=== PATIENT | male | born 1955 | race African-American/Black ===

== ENCOUNTER 2021-07-16 00:51 | Emergency (ER) | payer OTHER, MEDICAID ==
[~2021-07-16] VITALS: Ht 180.3 cm; Wt 102.0 kg
[2021-07-16] MEDS ORDERED: ONDANSETRON HCL 4MG/2ML INJ IV STA (03:09)
[2021-07-16] MEDS ORDERED: SODIUM CHLORIDE 0.9% 1,000 ML IV ONE ×2 (03:15→09:45)
[2021-07-16 05:28] LABS: HEMATOCRIT. 50.9 % (42.0-52.0); HEMOGLOBIN. 16.5 g/dL (14.0-18.0); MEAN CORPUSCULAR VOLUME 89.6 fL (80.0-94.0); MEAN PLATELET VOLUME 8.6 fl (7.4-10.4); PLATELET 221 x1000/uL (130-400); RED BLOOD CELL COUNT 5.68 mill/uL (4.7-6.1); RED CELL DISTRIBUTION WIDTH 13.3 % (11.6-14.6)
[2021-07-16 05:30] VITALS: BP 132/92
[2021-07-16 05:36] LABS: CHLORIDE 100 mEq/L (98-107)
[2021-07-16 05:40] LABS: ETHANOL BLOOD < 10 mg/dL
[2021-07-16] MEDS ORDERED: SODIUM BICARBONATE 8.4% 1 MEQ/ML 50ML SYR IV ONE (06:15)
[2021-07-16] MEDS ORDERED: DEXTROSE 50% WATER 50ML SYRINGE IV ONE (06:15)
[2021-07-16] MEDS ORDERED: INSULIN REGULAR (HUMULIN R) 300UNITS/3ML VIAL IV ONE (06:15)
[2021-07-16] MEDS ORDERED: SODIUM POLYSTYRENE SULFONATE 15 G/60 ML BOT PO ONE (06:15)
[2021-07-16 08:25] LABS: PLATELET ESTIMATE NORMAL
[2021-07-16] MEDS ORDERED: CLONIDINE 0.1MG TABLET PO PRN (09:45)
[2021-07-16] MEDS ORDERED: GUAIFENESIN 200MG/10ML SUGAR FREE UDC PO PRN (09:45)
[2021-07-16] MEDS ORDERED: DOCUSATE SODIUM 100MG CAPSULE PO PRN (09:45)
[2021-07-16] MEDS ORDERED: ONDANSETRON HCL 4MG/2ML INJ IV PRN (09:45)
[2021-07-16] MEDS ORDERED: ACETAMINOPHEN 325MG TABLET PO PRN (09:45)
[2021-07-16 11:29] LABS: BASOPHILS % 0.2 % (0.0-2.0); EOSINOPHILS % 0.7 % (0.0-5.0); HEMATOCRIT. 50.3 % (42.0-52.0); HEMOGLOBIN. 16.4 g/dL (14.0-18.0); LYMPHOCYTES % 7.9 % (20.0-50.0); MEAN CORPUSCULAR VOLUME 88.9 fL (80.0-94.0); MEAN PLATELET VOLUME 8.3 fl (7.4-10.4); MONOCYTES % 10.3 % (2.0-8.0); NEUTROPHILS % 80.9 % (40.0-76.0); PLATELET 214 x1000/uL (130-400); RED BLOOD CELL COUNT 5.66 mill/uL (4.7-6.1); RED CELL DISTRIBUTION WIDTH 13.1 % (11.6-14.6)
[2021-07-16 11:42] LABS: PHOSPHORUS 3.5 mg/dL (2.5-4.9)
[2021-07-16 11:49] LABS: AMYLASE 96 IU/L (25-115)
[2021-07-16] MEDS ORDERED: SODIUM POLYSTYRENE SULFONATE 15 G/60 ML BOT PO NR (12:00)
[2021-07-16] MEDS ORDERED: PREDNISONE 10MG TABLET PO SCH (12:00)
[2021-07-16] MEDS ORDERED: TACROLIMUS 1MG CAPSULE PO SCH (12:00)
[2021-07-16] MEDS ORDERED: MYCOPHENOLATE MOFETIL 500MG TABLET PO SCH (21:00)
== END 2021-07-16 13:58 | disposition left against medical advice (07) ==
LOC: ER 00:51 → CANBEDREQ 22:44
DX: N17.9 Acute kidney failure, unspecified (principal); I12.9 Hypertensive chronic kidney disease with stage 1 through stage 4 chronic kidney disease, or unspecified chronic kidney disease; E87.1 Hypo-osmolality and hyponatremia; Z20.822 Contact with and (suspected) exposure to COVID-19; K85.90 Acute pancreatitis without necrosis or infection, unspecified; N18.30 Chronic kidney disease, stage 3 unspecified; E87.2 Acidosis; F14.129 Cocaine abuse with intoxication, unspecified; Z94.0 Kidney transplant status
CPT/HCPCS: 36415; 71045; 74176; 80048; 80053; 80320; 82150; 83605; 83690; 83735; 84100; 84145; 84484; 85025; 87426; 93005; 96361; 96374; 96375; 99291; J1815; J2405; J3490; J7030; J7512; J7507; G0480